=== PATIENT | female | born 2005 | race Caucasian/White ===

== ENCOUNTER → 2023-01-24 14:22 | Outpatient (CLI) | payer OTHER, SELFPAY ==
--- NOTE | ~2023-01-24 | XR_ITS ---
[id number] DATE: 01/24/2023 14:35 INDICATION: Injury from fall while water skiing. Pain mid posterior to lateral left ribs TECHNIQUE: PA chest. 3 views of the left ribs. COMPARISON: None FINDINGS: No left rib fracture or bone destruction is detected. Normal heart size. No hilar or mediastinal enlargement. No pulmonary infiltrate or consolidation, ple ural effusion or pulmonary vascular congestion or pneumothorax. IMPRESSION: Negative Reviewed, dictated and finalized at [facility]. Reviewed, dictated and finalized at [facility]. IMPRESSION: Negative
== END ==
PROVIDERS: PCP Emergency Medicine; Visit Provider Nurse Practitioner Family
DX: R07.81 Pleurodynia (principal)
CPT/HCPCS: 71101